=== PATIENT | female | born 1980 | race Caucasian/White ===

== ENCOUNTER 2022-01-31 13:34 | Emergency (ER) | payer BC, SELFPAY ==
[2022-01-31] VITALS (26 sets, daily range): BP systolic 101–129; BP diastolic 59–90; PULSE 65; RESP 16; TEMP 36.9; O2SAT 93–99; BMI 27.8
[2022-01-31 14:46] LABS: Basophils # 0.1 10^3/uL (0.0-0.1); Basophils % 0.7 %; Eosinophils # 0.1 10^3/uL (0.0-0.8); Eosinophils % 1.9 %; Hematocrit 37.7 % (37.0-47.0); Hemoglobin 12.5 g/dL (11.5-15.3); Lymphocytes % 26.6 %; Mean Corpuscular HGB Conc 33.2 g/dL (30.0-36.0); Mean Corpuscular Hemoglobin 30.8 pg (28.0-34.0); Mean Corpuscular Volume 92.9 fl (81-99); Mean Platelet Volume 10.8 fL (7.4-10.4); Monocytes # 0.5 10^3/uL (0.2-0.9); Monocytes % 6.3 %; Neutrophils # 4.73 10^3/uL (1.8-7.7); Neutrophils % 64.2 %; Nucleated Red Blood Cells % 0 %; Platelet Count 243 10^3/cmm (130-400); Red Blood Count 4.06 10^6/uL (4.1-5.3); Red Cell Distribution Width 13.2 % (12.1-15.1); White Blood Count 7.4 10^3/uL (4.0-10.0)
--- NOTE | 2022-01-31 14:57 | W.ED.ABDPA2 ---
HPI - Abdominal Pain General: Chief Complaint: Abdominal Pain Stated Complaint: Sent from [facility], groin pain Time Seen by Provider: 01/31/22 14:15 Source: patient Mode of arrival: ambulatory History of Present Illness: 42-year-old female presents to the emergency room with complaints of lower abdominal pain back pain that radiates to her buttock and upper portion of her right leg. Symptoms began yesterday and continued into today have been slightly worsening. she was seen earlier today at one of the outlying clinics and given Toradol. She presents to the emergency room wanting further evaluation. She has previously had an appendectomy. She denies any fever sweats or chills no dysuria urgency or frequency no nausea or vomiting noted hematuria. No fever sweats or chills. She has no known history of nephrolithiasis. No recent trauma. MD elicited complaint: abdominal pain Onset (ago): hour(s) Location: Suprapubic (Right) and Other (Buttock and right proximal thigh) Severity: moderate Quality: sharp Radiation: other (Right upper leg) Exacerbating factors: nothing Relieving factors: medication Associated Symptoms: Reports GI cramping; Denies anorexia, belching, bloating, change in bowel habits, change in stool character, chills, coffee ground emesis, constipation, diarrhea, dyspepsia, dysuria, excessive flatus, fever(s), heartburn, hematochezia, hematuria, hematemesis, fecal incontinence, loose stools, melena, nausea, poor appetite, syncope and vomiting Related Data: Date of Last Menstrual Period: 01/19/22 Review of Systems Const: Denies: fever(s), chills, malaise or night sweats ENMT: Denies: throat pain, ear or mastoid pain, nasal discharge or nasal congestion Card: Denies: syncope Resp: Denies: dyspnea, productive cough or non-productive cough GI: Reports: GI cramping; Denies: nausea, vomiting, hematemesis, coffee ground emesis, heartburn, diarrhea, constipation, bloating, belching, excessive flatus, fecal incontinence, change in bowel habits, change in stool character, hematochezia or melena : Reports: flank pain; Denies: difficulty voiding, dysuria, urinary frequency, urinary urgency, urinary hesitancy or hematuria Musc: Reports: back pain and extremity pain Skin/Breast: Denies: rash or pruritus PFSH ED PFSH: Medical History Alpha 1-antitrypsin PiMS phenotype Endometriosis Surgical History History of surgical procedure on mouth Hx of appendectomy Hx of tubal ligation Social History Smoking and tobacco status: former smoker Female Reproductive History: Date of last menstrual period: 01/19/22 Physical Exam Const: COMMON NORMALS: no acute distress GENERAL APPEARANCE: cooperative and comfortable ORIENTATION/CONSCIOUSNESS: Yes awake, Yes oriented to person, Yes oriented to place and Yes oriented to time HENMT: COMMON NORMALS: normocephalic, atraumatic and hearing grossly normal bilaterally HEAD & SCALP: normocephalic and atraumatic Resp: COMMON NORMALS: normal respiratory effort, No retractions, No use of accessory muscles and clear to auscultation bilaterally AUSCULTATION: clear to auscultation bilaterally Cardio: COMMON NORMALS: regular rate, regular rhythm and No murmurs present (Cardio) RATE: regular rate RHYTHM: regular rhythm GI: COMMON NORMALS: Soft to palpation and No hepatosplenomegaly present AUSCULTATION: Yes normoactive bowel sounds PALPATION: Yes Soft to palpation, No Tenderness to palpation present (GI), No Guarding due to palpation present (GI) and Yes No hepatosplenomegaly present Extremity: COMMON NORMALS: normal to inspection, capillary refill normal, no clubbing, cyanosis or edema, no calf tenderness and no pedal edema Neuro: SENSORIUM/ORIENTATION: Yes oriented to person, Yes oriented to place and Yes oriented to time DEEP TENDON REFLEXES: Right patellar reflex intensity grade: 1+ and Left patellar reflex intensity grade: 2+ OTHER: Neurovascularly intact in the lower extremities for sensation capillary refill decreased patellar tendon reflex on the right compared to the left straight leg raising is negative Skin: COMMON NORMALS: no rashes or lesions noted GENERAL SKIN EXAM: no rashes or lesions noted Course Vital Signs: Vital signs: Vital Signs Temperature 98.5 F 01/31/22 13:45 Pulse Rate 65 01/31/22 13:45 Respiratory Rate 16 01/31/22 13:45 Blood Pressure 110/71 01/31/22 13:45 Pulse Oximetry 97 01/31/22 13:45 Oxygen Delivery Me thod 01/31/22 13:45 MDM - Abdominal Pain Medical Decision Making History and presentation more consistent with lumbar nerve impingement. She has no elevation of white count and normal abdominal exam and no blood in her urine. She has no dysuria urgency or frequency. We will set up for outpatient follow-up for her back pain and referred her to the spine clinic at orthopedics. Patient started on steroids discharged home with anti-inflammatories steroid taper and muscle relaxer. Medical Records I reviewed the patient's medical records. Lab Data I reviewed the patient's lab results. : 01/31/22 14:30 01/31/22 14:30 Labs/Radiology: Laboratory Results WBC 7.4 10^3/uL (4.0-10.0) 01/31/22 14:30 RBC 4.06 10^6/uL (4.1-5.3) L 01/31/22 14:30 Hgb 12.5 g/dL (11.5-15.3) 01/31/22 14:30 Hct 37.7 % (37.0-47.0) 01/31/22 14:30 MCV 92.9 fl (81-99) 01/31/22 14:30 MCH 30.8 pg (28.0-34.0) 01/31/22 14:30 MCHC 33.2 g/dL (30.0-36.0) 01/31/22 14:30 RDW 13.2 % (12.1-15.1) 01/31/22 14:30 Plt Count 243 10^3/cmm (130-400) 01/31/22 14:30 MPV 10.8 fL (7.4-10.4) H 01/31/22 14:30 Neut % (Auto) 64.2 % 01/31/22 14:30 Lymph % (Auto) 26.6 % 01/31/22 14:30 [place] % (Auto) 6.3 % 01/31/22 14:30 Eos % (Auto) 1.9 % 01/31/22 14:30 Baso % (Auto) 0.7 % 01/31/22 14:30 Neut # (Auto) 4.73 10^3/uL (1.8-7.7) 01/31/22 14:30 Lymph # (Auto) 2.0 10^3/uL (0.8-4.8) 01/31/22 14:30 [place] # (Auto) 0.5 10^3/uL (0.2-0.9) 01/31/22 14:30 Eos # (Auto) 0.1 10^3/uL (0.0-0.8) 01/31/22 14:30 Baso # (Auto) 0.1 10^3/uL (0.0-0.1) 01/31/22 14:30 Nucleated RBC % (auto) 0 % 01/31/22 14:30 Nucleated RBCs # 0.0 /100WBC 01/31/22 14:30 Sodium 137 mmol/L (136-145) 01/31/22 14:30 Potassium 3.5 mmol/L (3.5-5.1) 01/31/22 14:30 Chloride 101 mmol/L (98-107) 01/31/22 14:30 Carbon Dioxide 26 mmol/L (22-29) 01/31/22 14:30 Anion Gap 13.5 (5-19) 01/31/22 14:30 BUN 12 mg/dL (6-20) 01/31/22 14:30 Creatinine 0.7 mg/dL (0.5-0.9) 01/31/22 14:30 GFR Calculation 91.3 mL/min (90-130) 01/31/22 14:30 Glucose 95 mg/dL (65-115) 01/31/22 14:30 Calculated Osmolality 284 mOsm/kg (285-295) L 01/31/22 14:30 Calcium 9.5 mg/dL (8.5-10.5) 01/31/22 14:30 Total Bilirubin 0.4 mg/dL (0.15-1.2) 01/31/22 14:30 AST 17 U/L (0-32) 01/31/22 14:30 ALT 19 U/L (0-33) 01/31/22 14:30 Alkaline Phosphatase 75 U/L (35-105) 01/31/22 14:30 Total Protein 7.3 g/dL (6.6-8.7) 01/31/22 14:30 Albumin 4.4 g/dL (3.5-5.2) 01/31/22 14:30 Globulin 2.9 g/dL (1.3-4.6) 01/31/22 14:30 Lipase 10 U/L (13-60) L 01/31/22 14:30 HCG, Qual Negative (Negative) 01/31/22 14:30 Urine Color Straw (Yellow) 01/31/22 14:30 Urine Appearance Clear (CLEAR) 01/31/22 14:30 Urine pH 6 (5-7) 01/31/22 14:30 Ur Specific [place] 1.015 (1.005-1.030) 01/31/22 14:30 Urine Protein Neg (Negative) 01/31/22 14:30 Urine Glucose (UA) Norm (Normal) 01/31/22 14:30 Urine Ketones 1+ (Negative) H 01/31/22 14:30 Urine Blood 2+ (Negative) H 01/31/22 14:30 Urine Nitrate Negative (Negative) 01/31/22 14:30 Urine Bilirubin Neg (Negative) 01/31/22 14:30 Urine Urobilinogen Norm mg/dL (Negative) 01/31/22 14:30 Ur Leukocyte Esterase Negative (Negative) 01/31/22 14:30 Urine RBC 0-4 /hpf (0-2) H 01/31/22 14:30 Urine WBC None /hpf (0-5) 01/31/22 14:30 Ur Squamous Epith Cells 0-4 /hpf (0-5) H 01/31/22 14:30 Amorphous Sediment Not Reportable 01/31/22 14:30 Urine Bacteria Trace /hpf (NONE) 01/31/22 14:30 Discharge Plan Discharge Patient Disposition: Home Clinical Impression: Lumbar back pain with radiculopathy affecting right lower extremity Condition: Stable Prescriptions: New prednisone 20 mg tablet 20 mg PO TID Qty: 15 0RF Rx Instructions: 1 p.o. 3 times daily x3 days, 1 p.o. twice daily x2 days, 1 p.o. daily x2 days diclofenac sodium 75 mg tablet,delayed release (DR/EC) 75 mg PO Q12H PRN (Reason: pain) Qty: 20 0RF tizanidine 4 mg tablet 4 mg PO Q12H PRN (Reason: muscle spasticity) Qty: 30 0RF Lyrica 75 mg capsule 75 mg PO BID Qty: 60 0RF No Action fluticasone propionate 50 mcg/actuation spray,suspension 2 spray intranasal DAILY PRN (Reason: nasal congestion) 360 Days Qty: 16 11RF Discharge Orders: Discharge ED (Routine); Ordered 01/31/22 Ordered By: David Dixon Discharge Diet: Usual diet Discharge Activity: Limit activity as instructed Patient Instructions: Opioid Safety, Pain Management Activity Restrictions/Additional Instructions: Case management will make arrangement for follow up. Coding Level of Care Code ED Supervisor Boarding for Chg Fwd Exam Detailed
[2022-01-31 15:09] LABS: Glucose Urine UA Norm (Normal); Protein Urine Neg (Negative); Specific Gravity, Urine 1.015 (1.005-1.030); Urine Appearance Clear (CLEAR); Urine Color Straw (Yellow); pH Urine 6 (5-7)
[2022-01-31 15:10] LABS: Add Urine Microscopic? YES; Bilirubin Urine Neg (Negative); Blood Urine 2+ (Negative); Ketones Urine 1+ (Negative); Leukocyte Esterase Urine Negative (Negative); Nitrate Urine Negative (Negative); RBC Urine 0-4 /hpf (0-2); Squamous Epithelial Cell Urine 0-4 /hpf (0-5); Urobilinogen Urine Norm (Negative)
[2022-01-31 15:11] LABS: Add Urine Culture? No; Alanine Aminotransferase 19 U/L (0-33); Albumin Level 4.4 g/dL (3.5-5.2); Alkaline Phosphatase 75 U/L (35-105); Anion Gap 13.5 (5-19); Aspartate Amino Transferase 17 U/L (0-32); Bacteria Urine TRACE /hpf; Blood Urea Nitrogen 12 mg/dL (6-20); Calcium 9.5 mg/dL (8.5-10.5); Carbon Dioxide 26 mmol/L (22-29); Chloride 101 mmol/L (98-107); Globulin 2.9 g/dL (1.3-4.6); Glomerular Filtration Rate 91.3 mL/min (90-130); Glucose 95 mg/dL (65-115); HCG Qualitative Urine. Negative (Negative); Lipase 10 U/L (13-60); Osmolality Calculated 284 mOsm/kg (285-295); Potassium 3.5 mmol/L (3.5-5.1); Sodium 137 mmol/L (136-145); Total Bilirubin 0.4 mg/dL (0.15-1.2); Total Protein 7.3 g/dL (6.6-8.7)
--- NOTE | 2022-02-01 13:16 | DCPLANNER ---
Addendum entered by Sarah Beth Mares 02/02/22 10:27: manager product support received the following message from the ortho clinic regarding follow up appointment: Left vm/mailed letter for pt to call back and schedule with MARY Garvey manager product support spoke with patient, she stated that she did not want the referral to ortho at this time. Original Note: manager product support had message to schedule a follow up appointment for patient with ortho. manager product support sent patients information to the front office staff at ortho. Patients information will be printed and reviewed. Clinic will call patient with appointment information.
== END 2022-01-31 17:05 | disposition home or self-care (01) ==
PROVIDERS: Physician Assistant; Emergency Provider Family Medicine
DX: M54.16 Radiculopathy, lumbar region (principal); Z87.891 Personal history of nicotine dependence
CPT/HCPCS: 80053; 81000; 81001; 81025; 83690; 85025; 99283